=== PATIENT | female | born 1985 | race Caucasian/White ===

== ENCOUNTER → 2017-02-09 | Outpatient (CLI) | payer OTHER ==
[~2017-02-09] MED LIST: ACYCLOVIR 400400 MG PO; DEPAKOTE ER250 MG PO; DEPAKOTE250 MG PO; IBUPROFEN 600600 M1 PO; IRON325; IRON325 PO; NORCO 5-325 TA1 EACH PO; PAXIL CR25 MG PO; PHENERGAN 25 MG25 M1 PO; PRENATAL PO; [UNRECOGNIZED DRUG - OTHER] PO
== END ==
LOC: ULTRA 08:04
DX: N63.20 Unspecified lump in the left breast, unspecified quadrant (principal); N63.10 Unspecified lump in the right breast, unspecified quadrant